=== PATIENT | female | born 1950 | race Caucasian/White ===

== ENCOUNTER 2019-08-11 13:33 | Inpatient (IN) | payer MEDICARE, OTHER ==
[~2019-08-11] VITALS: Ht 165.1 cm; Wt 60.8 kg
[~2019-08-11 13:33] MED LIST: AMLODIPINE BESYL5 MG ORAL; BENAZEPRIL HCL20 MG ORAL; BUPROPION HCL100 MG ORAL; CYCLOBENZAPRINE10 MG ORAL; FENTANYL1 EAC4 TDERMAL; GABAPENTIN300 MG ORAL; HYDROCODON-ACE1 EA13 ORAL; IBUPROFEN600 MG ORAL; LAMICTAL25 MG ORAL; METOPROLOL SUCC25 MG ORAL; RISPERDAL0.5 MG ORAL; RISPERDAL2 MG ORAL; ZOFRAN4 M3 ORAL
[2019-08-11] MEDS ORDERED: Morphine Sulfate 4mg/ml Inj (IV USE ONLY) IVP ONE (14:15)
[2019-08-11 14:54] LABS: BASOPHILS % (AUTO) 0.8 % (0.0-2.0); EOSINOPHILS % (AUTO) 7.5 % (0.0-3.0); HEMATOCRIT 34.1 % (37.0-47.0); HEMOGLOBIN 11.6 G/DL (12.0-16.0); LYMPHOCYTES % (AUTO) 18.5 % (20.0-45.0); MEAN CORPUSCULAR VOLUME 91 FL (80-99); NEUTROPHILS % (AUTO) 67.3 % (45.0-75.0); PLATELET COUNT 174 K/UL (150-450); RED BLOOD COUNT 3.74 M/UL (4.20-5.40); RED CELL DISTRIBUTION WIDTH 11.9 % (11.6-14.8); WHITE BLOOD COUNT 8.2 K/UL (4.8-10.8)
[2019-08-11 15:09] LABS: ANION GAP 8 mmol/L (5-15); BLOOD UREA NITROGEN 30 mg/dL (7-18); CARBON DIOXIDE 25 MMOL/L (21-32); CHLORIDE 109 MMOL/L (98-107); CREATININE 1.5 MG/DL (0.55-1.30); POTASSIUM 4.6 MMOL/L (3.5-5.1); SODIUM 142 MMOL/L (136-145)
[2019-08-11 15:11] LABS: ALANINE AMINOTRANSFERASE 22 U/L (12-78); ALBUMIN 3.3 G/DL (3.4-5.0); ALBUMIN/GLOBULIN RATIO 1.1 (1.0-2.7); ALKALINE PHOSPHATASE 86 U/L (46-116); ASPARTATE AMINO TRANSFERASE 11 U/L (15-37); BILIRUBIN,TOTAL 0.2 MG/DL (0.2-1.0)
[2019-08-11 15:22] VITALS: BP 107/67
--- NOTE | 2019-08-11 15:22 | NUR ---
ER Nurse Note: Pt stated she has been feeling weak espically on bilateral lower extremities and is unable to walk for around 2 months. Pt a&ox3, VSS, RA, no signs disstress. IV started by previous nurse on RT AC 20 gauge infusing NS. Morphine given for pain; no n/v, all safety measures met; will continue to montior.
[2019-08-11] MEDS ORDERED: Zolpidem 5mg tab ORAL PRN (15:30)
[2019-08-11] MEDS ORDERED: Miralax 17gm pkt ORAL PRN (15:30)
--- NOTE | 2019-08-11 17:02 | NUR ---
ER Nurse Note: Per ERMD orders, verbal orders for zofran IV 4mg ordered. Pt stated she was nauseous after morphine. Zofran ordered and given. Pt calm, stable, RA, no signs of distress. NS infusing on RT AC; patent. All safety measures met; will continue to montior.
[2019-08-11 17:13] VITALS: BP 125/75
--- NOTE | 2019-08-11 17:55 | Emergency Room Report ---
History of Present Illness General Chief Complaint: Generalized Weakness Source: Medical Record Present Illness HPI 68-year-old female presents ED for evaluation. Brought in by EMS from assisted living facility. Complaining of lower back pain x2 months. Radiating down the legs. States she feels weak and cannot walk. Denies any bowel or bladder incontinence. Denies fevers or chills. Pain is an 8 out of 10, dull. No other aggravating relieving factors. Denies any other associated symptoms Allergies: Coded Allergies: No Known Allergies (Unverified , 07/16/19) Patient History Past Medical History: HTN Past Surgical History: none Pertinent Family History: none Social History: Denies: smoking, alcohol use, drug use Now: No Immunizations: UTD Reviewed Nursing Documentation: PMH: Agreed; PSxH: Agreed Nursing Documentation-PMH Past Medical History: No History, Except For Hx Hypertension: Yes Review of Systems All Other Systems: negative except mentioned in HPI Physical Exam Vital Signs Date Time Temp Pulse Resp B/P (MAP) Pulse Ox O2 Delivery O2 Flow Rate FiO2 08/11/19 13:46 97.5 87 16 107/67 (80) 99 Room Air Sp02 EP Interpretation: reviewed, normal General Appearance: no apparent distress, alert, GCS 15, non-toxic Head: normocephalic, atraumatic Eyes: bilateral eye normal inspection, bilateral eye PERRL ENT: hearing grossly normal, normal pharynx, no angioedema, normal voice Neck: full range of motion, supple/symm/no masses Respiratory: chest non-tender, lungs clear, normal breath sounds, speaking full sentences Cardiovascular #1: regular rate, rhythm, no edema Cardiovascular #2: 2+ carotid (R), 2+ carotid (L), 2+ radial (R), 2+ radial (L) , 2+ dorsalis pedis (R), 2+ dorsalis pedis (L) Gastrointestinal: normal bowel sounds, non tender, soft, non-distended, no guarding, no rebound Rectal: deferred Genitourinary: normal inspection, no CVA tenderness Musculoskeletal: back normal, normal range of motion, gait/station normal, non- tender Neurologic: alert, oriented x3, sensory intact, responsive, speech normal, other - 3/5 lower extremities Psychiatric: judgement/insight normal, memory normal, mood/affect normal, no suicidal/homicidal ideation Reflexes: 3+ bicep (R), 3+ bicep (L), 3+ tricep (R), 3+ tricep (L), 3+ knee (R) , 3+ knee (L) Skin: no rash Lymphatic: no adenopathy Medical Decision Making Diagnostic Impression: Primary Impression: Intractable back pain Additional Impressions: Unsteady gait Renal insufficiency ER Course Hospital Course 68 yo F presents with back pain, weakness in legs Differential diagnoses include: sciatica, vertebral fx, kidney stone, Clinical course Patient placed on stretcher. campus monitor. After initial history and physical I ordered labs, IV fluids, pain meds Labs - no leukocytosis, Hb/Hct stable. cr 1.5 I reviewed EMR. Patient was seen in July for similar presentation. Had MRI done. I see no reason to repeat MRI at this time. Discussed option for admission at this time but patient declined. Agrees to admission today. Discussed with PMD who believes patient would benefit from admission Patient given pain medications but still continues to have pain and unable to walk Case discussed with Dr. Pimentel and he agreed to accept the patient to his service for further care and support I feel this is a highly complex case requiring extensive working including EKG/ Rhythm strip, Xray/CT/US, Blood/urine lab work, repeat exams while in ED, and administration of strong opiates/narcotics for pain control, admission to hospital or close patient follow up. Diagnosis -intractable back pain, unsteady gait, renal insuffiiciency Patient admitted to floor in serious condition Labs Test 08/11/19 14:30 White Blood Count 8.2 K/UL (4.8-10.8) Red Blood Count 3.74 M/UL (4.20-5.40) Hemoglobin 11.6 G/DL (12.0-16.0) Hematocrit 34.1 % (37.0-47.0) Mean Corpuscular Volume 91 FL (80-99) Mean Corpuscular Hemoglobin 31.1 PG (27.0-31.0) Mean Corpuscular Hemoglobin Concent 34.1 G/DL (32.0-36.0) Red Cell Distribution Width 11.9 % (11.6-14.8) Platelet Count 174 K/UL (150-450) Mean Platelet Volume 8.6 FL (6.5-10.1) Neutrophils (%) (Auto) 67.3 % (45.0-75.0) Lymphocytes (%) (Auto) 18.5 % (20.0-45.0) Monocytes (%) (Auto) 6.0 % (1.0-10.0) Eosinophils (%) (Auto) 7.5 % (0.0-3.0) Basophils (%) (Auto) 0.8 % (0.0-2.0) Sodium Level 142 MMOL/L (136-145) Potassium Level 4.6 MMOL/L (3.5-5.1) Chloride Level 109 MMOL/L (98-107) Carbon Dioxide Level 25 MMOL/L (21-32) Anion Gap 8 mmol/L (5-15) Blood Urea Nitrogen 30 mg/dL (7-18) Creatinine 1.5 MG/DL (0.55-1.30) Estimat Glomerular Filtration Rate 34.7 mL/min (>60) Glucose Level 78 MG/DL (74-106) Calcium Level 9.0 MG/DL (8.5-10.1) Total Bilirubin 0.2 MG/DL (0.2-1.0) Aspartate Amino Transf (AST/SGOT) 11 U/L (15-37) Alanine Aminotransferase (ALT/SGPT) 22 U/L (12-78) Alkaline Phosphatase 86 U/L (46-116) Total Protein 6.2 G/DL (6.4-8.2) Albumin 3.3 G/DL (3.4-5.0) Globulin 2.9 g/dL Albumin/Globulin Ratio 1.1 (1.0-2.7) Last Vital Signs Date Time Temp Pulse Resp B/P (MAP) Pulse Ox O2 Delivery O2 Flow Rate FiO2 08/11/19 17:13 98.2 80 16 125/75 96 Room Air Status: improved Disposition: ADMITTED INPATIENT Condition: Serious Referrals: Kaushik Pimentel MD (PCP) Gunnar Parham MD Aug 11, 2019 17:55
[2019-08-11] MEDS ORDERED: Cyclobenzaprine 10mg Tab ORAL SCH (18:00)
--- NOTE | 2019-08-11 18:50 | NUR ---
ER Nurse Note: Pt asleep, no signs of distress, RA. Pt calm. Skin intact; Bed in the lowest position. No falls, all safety measures met; will continue to monitor.
[2019-08-11 20:50] VITALS: BP 134/72
--- NOTE | 2019-08-11 20:50 | NUR ---
ER Nurse Note: Report given to PRIYA Mujica for continuity of care. Pt denies pain, shortness of breath. All belongings accounted for.
[2019-08-11 21:00] VITALS: BP 140/85
[2019-08-11] MEDS: Heparin 5000 units/ml inj SUBQ SCH (21:27)
[2019-08-11] MEDS: Cyclobenzaprine 10mg Tab ORAL SCH (21:28)
--- NOTE | 2019-08-11 21:30 | NUR ---
NURSE NOTES: Received patient from ER via gurney, able to make needs known, no s/s of a acute distress, no c/o pain at this time. IV access patent, flushed with NS, dressing dry and intact. VSS. Call light and belongings within reach, bed low and locked, patient given yellow gown and yellow socks.
[2019-08-12] VITALS (7 sets, daily range): BP systolic 107–138; BP diastolic 68–87
--- NOTE | 2019-08-12 08:13 | NUR ---
NURSE NOTES: Patient is awake and alert and oriented,respirations unlabored .patient sitting up in bed and eating breakfast.Call light within reach.
[2019-08-12 08:19] LABS: BASOPHILS % (AUTO) 0.6 % (0.0-2.0); EOSINOPHILS % (AUTO) 7.7 % (0.0-3.0); HEMATOCRIT 32.4 % (37.0-47.0); HEMOGLOBIN 11.4 G/DL (12.0-16.0); LYMPHOCYTES % (AUTO) 21.1 % (20.0-45.0); MEAN CORPUSCULAR VOLUME 90 FL (80-99); MONOCYTES % (AUTO) 6.1 % (1.0-10.0); NEUTROPHILS % (AUTO) 64.5 % (45.0-75.0); PLATELET COUNT 158 K/UL (150-450); RED CELL DISTRIBUTION WIDTH 11.8 % (11.6-14.8); WHITE BLOOD COUNT 7.9 K/UL (4.8-10.8)
[2019-08-12 09:01] LABS: ALANINE AMINOTRANSFERASE 74 U/L (12-78); ALBUMIN 3.3 G/DL (3.4-5.0); ALBUMIN/GLOBULIN RATIO 1.2 (1.0-2.7); ALKALINE PHOSPHATASE 128 U/L (46-116); ANION GAP 8 mmol/L (5-15); ASPARTATE AMINO TRANSFERASE 51 U/L (15-37); BILIRUBIN,TOTAL 0.3 MG/DL (0.2-1.0); BLOOD UREA NITROGEN 23 mg/dL (7-18); CALCIUM 9.1 MG/DL (8.5-10.1); CARBON DIOXIDE 25 MMOL/L (21-32); CHLORIDE 110 MMOL/L (98-107); CREATININE 1.1 MG/DL (0.55-1.30); POTASSIUM 4.3 MMOL/L (3.5-5.1); SODIUM 143 MMOL/L (136-145)
--- NOTE | 2019-08-12 09:17 | Consultation ---
History of Present Illness General Date patient seen: Aug 12, 2019 Time patient seen: 07:30 - am Chief Complaint: Back pain Referring physician: Margarito Reason for Consultation: Pain Management Present Illness HPI Patient is a known patient from previous hospital admissions. Had been in [facility] where she underwent lumbar fusion with Dr. Martinez. She has continued pain and the pain is shooting into her legs. Patient also reports that she had a fall and the pain has increased. We were consulted so patient has adequate pain control while here in the hospital. Allergies: Coded Allergies: No Known Allergies (Unverified , 07/16/19) Medication History Scheduled Amlodipine Besylate* (Amlodipine Besylate*), 5 MG ORAL DAILY, (Reported) Benazepril Hcl* (Benazepril Hcl*), 20 MG ORAL DAILY, (Reported) Bupropion Hcl* (Bupropion Hcl*), 150 MG ORAL DAILY, (Reported) Cyclobenzaprine Hcl* (Flexeril*), 5 MG ORAL TWICE A DAY, (Reported) Fentanyl 12MCG Patch* (Fentanyl 12MCG Patch*), 1 PATCH TDERMAL EVERY 72 HOURS, ( Reported) Gabapentin* (Gabapentin*), 300 MG ORAL THREE TIMES A DAY, (Reported) Hydrocodone Bit/Acetaminophen 10-325* (Hydrocodon-Acetaminophn 10-325*), 1 TAB ORAL Q6H, (Reported) Lamotrigine* (Lamictal*), 25 MG ORAL DAILY, (Reported) Metoprolol Succinate* (Metoprolol Succinate*), 25 MG ORAL DAILY, (Reported) Risperidone* (Risperdal*), 7 MG ORAL BEDTIME, (Reported) Risperidone* (Risperdal*), 2 MG ORAL BEFORE BREAKFAST, (Reported) Scheduled PRN Ibuprofen* (Motrin*), 600 MG ORAL Q6H PRN for For Pain, (Reported) Ondansetron* (Zofran*), 4 MG ORAL Q4HR PRN for Nausea & Vomiting, (Reported) Patient History Healthcare decision maker Resuscitation status Advanced Directive on File No Past Medical/Surgical History Past Medical/Surgical History: (1) Depression (2) Renal insufficiency (3) Dehydration (4) Psychosis (5) Intractable back pain (6) History of lumbosacral spine surgery Review of Systems Constitutional: Reports: weakness Eye: Reports: no symptoms ENT: Reports: no symptoms Respiratory: Reports: no symptoms Cardiovascular: Reports: no symptoms Gastrointestinal: Reports: no symptoms Genitourinary: Reports: no symptoms Musculoskeletal: Reports: back pain Skin: Reports: no symptoms Psychiatric: Reports: no symptoms Neurological: Reports: no symptoms Endocrine: Reports: no symptoms Hematologic/Lymphatic: Reports: no symptoms Physical Exam General Appearance: no apparent distress, alert Lines, tubes and drains: peripheral HEENT: normocephalic, PERRL, EOMI Neck: non-tender, normal alignment Respiratory/Chest: lungs clear, normal breath sounds Cardiovascular/Chest: normal rate, regular rhythm Abdomen: non tender, soft Extremities: non-tender, normal inspection Neurologic: abnormal gait, alert, oriented x 3 Last 24 Hour Vital Signs Date Time Temp Pulse Resp B/P (MAP) Pulse Ox O2 Delivery O2 Flow Rate FiO2 08/12/19 04:00 97.5 76 16 127/75 (92) 94 08/12/19 00:00 98.2 83 16 138/87 (104) 93 08/11/19 23:01 Room Air 08/11/19 21:00 98.4 82 19 140/85 (103) 94 08/11/19 20:50 98.4 84 16 134/72 97 Room Air 08/11/19 20:50 98.4 82 16 134/72 96 Room Air 08/11/19 17:13 98.2 80 16 125/75 96 Room Air 08/11/19 15:39 97.6 08/11/19 15:22 97.5 87 16 107/67 99 Room Air 08/11/19 15:22 87 16 Room Air 08/11/19 13:46 97.5 87 16 107/67 (80) 99 Room Air Intake and Output 08/11/19 08/12/19 19:00 07:00 Intake Total 1000 ml Balance 1000 ml Intake IV Total 1000 ml # Voids 3 Laboratory Tests Test 08/11/19 14:30 08/12/19 07:00 White Blood Count 8.2 K/UL (4.8-10.8) 7.9 K/UL (4.8-10.8) Red Blood Count 3.74 M/UL (4.20-5.40) L 3.60 M/UL (4.20-5.40) L Hemoglobin 11.6 G/DL (12.0-16.0) L 11.4 G/DL (12.0-16.0) L Hematocrit 34.1 % (37.0-47.0) L 32.4 % (37.0-47.0) L Mean Corpuscular Volume 91 FL (80-99) 90 FL (80-99) Mean Corpuscular Hemoglobin 31.1 PG (27.0-31.0) H 31.6 PG (27.0-31.0) H Mean Corpuscular Hemoglobin Concent 34.1 G/DL (32.0-36.0) 35.1 G/DL (32.0-36.0) Red Cell Distribution Width 11.9 % (11.6-14.8) 11.8 % (11.6-14.8) Platelet Count 174 K/UL (150-450) 158 K/UL (150-450) Mean Platelet Volume 8.6 FL (6.5-10.1) 7.7 FL (6.5-10.1) Neutrophils (%) (Auto) 67.3 % (45.0-75.0) 64.5 % (45.0-75.0) Lymphocytes (%) (Auto) 18.5 % (20.0-45.0) L 21.1 % (20.0-45.0) Monocytes (%) (Auto) 6.0 % (1.0-10.0) 6.1 % (1.0-10.0) Eosinophils (%) (Auto) 7.5 % (0.0-3.0) H 7.7 % (0.0-3.0) H Basophils (%) (Auto) 0.8 % (0.0-2.0) 0.6 % (0.0-2.0) Sodium Level 142 MMOL/L (136-145) 143 MMOL/L (136-145) Potassium Level 4.6 MMOL/L (3.5-5.1) 4.3 MMOL/L (3.5-5.1) Chloride Level 109 MMOL/L (98-107) H 110 MMOL/L (98-107) H Carbon Dioxide Level 25 MMOL/L (21-32) 25 MMOL/L (21-32) Anion Gap 8 mmol/L (5-15) 8 mmol/L (5-15) Blood Urea Nitrogen 30 mg/dL (7-18) H 23 mg/dL (7-18) H Creatinine 1.5 MG/DL (0.55-1.30) H 1.1 MG/DL (0.55-1.30) Estimat Glomerular Filtration Rate 34.7 mL/min (>60) 49.6 mL/min (>60) Glucose Level 78 MG/DL (74-106) 84 MG/DL (74-106) Calcium Level 9.0 MG/DL (8.5-10.1) 9.1 MG/DL (8.5-10.1) Total Bilirubin 0.2 MG/DL (0.2-1.0) 0.3 MG/DL (0.2-1.0) Aspartate Amino Transf (AST/SGOT) 11 U/L (15-37) L 51 U/L (15-37) H Alanine Aminotransferase (ALT/SGPT) 22 U/L (12-78) 74 U/L (12-78) Alkaline Phosphatase 86 U/L (46-116) 128 U/L (46-116) H Total Protein 6.2 G/DL (6.4-8.2) L 6.1 G/DL (6.4-8.2) L Albumin 3.3 G/DL (3.4-5.0) L 3.3 G/DL (3.4-5.0) L Globulin 2.9 g/dL 2.8 g/dL Albumin/Globulin Ratio 1.1 (1.0-2.7) 1.2 (1.0-2.7) Thyroid Stimulating Hormone (TSH) 2.644 uiU/mL (0.358-3.740) Height (Feet): 5 Height (Inches): 5.00 Weight (Pounds): 134 Medications Current Medications Medications (Trade) Dose Ordered Sig/Holli Route PRN Reason Start Time Stop Time Status Last Admin Dose Admin Acetaminophen (Tylenol) 650 mg Q4H PRN ORAL fever 08/11/19 15:30 09/10/19 15:29 Amlodipine Besylate (Norvasc) 5 mg DAILY ORAL 08/12/19 09:00 09/11/19 08:59 Bupropion HCl (Wellbutrin) 150 mg DAILY ORAL 08/12/19 09:00 09/11/19 08:59 Cyclobenzaprine HCl (Flexeril) 5 mg TWICE A DAY ORAL 08/11/19 21:00 09/10/19 20:59 08/11/19 21:28 Dextrose (Dextrose 50%) 25 ml Q30M PRN IV Hypoglycemia 08/11/19 15:30 09/10/19 15:29 Dextrose (Dextrose 50%) 50 ml Q30M PRN IV Hypoglycemia 08/11/19 15:30 09/10/19 15:29 Gabapentin (Neurontin) 300 mg THREE TIMES A DAY ORAL 08/11/19 21:00 09/10/19 20:59 08/11/19 21:28 Heparin Sodium (Porcine) (Heparin 5000 units/ml) 5,000 units EVERY 12 HOURS SUBQ 08/11/19 21:00 09/10/19 20:59 08/11/19 21:27 Lamotrigine (LaMICtal) 25 mg DAILY ORAL 08/12/19 09:00 09/11/19 08:59 Ondansetron HCl (Zofran) 4 mg Q6H PRN IVP Nausea & Vomiting 08/11/19 15:30 09/10/19 15:29 Polyethylene Glycol (Miralax) 17 gm HSPRN PRN ORAL Constipation 08/11/19 15:30 09/10/19 15:29 Risperidone (RisperDAL) 2 mg BEFORE BREAKFAST ORAL 08/12/19 06:30 09/11/19 06:29 08/12/19 06:48 Zolpidem Tartrate (Ambien) 5 mg HSPRN PRN ORAL Insomnia 08/11/19 15:30 08/18/19 15:29 Assessment/Plan Assessment/Plan: (1) Lumbar DDD (2) Lumbar Spondylosis (3) Lumbar Radiculopathy (4) H/o Lumbar fusion (5) Lumbar sprain Patient will be started on [place] 10/325mg PO 1 tab Q4h PRN and we will order an Xray of L spine. D/w Dr. Quach and he concurred. Lonnie Strong Aug 12, 2019 09:17
[2019-08-12] MEDS: Cyclobenzaprine 10mg Tab ORAL SCH ×2 (09:24→18:47)
[2019-08-12] MEDS: Heparin 5000 units/ml inj SUBQ SCH ×2 (09:25→21:22)
[2019-08-12] MEDS ORDERED: HYDROcodone/Acetamin 10/325 tab ORAL PRN ×2 (09:30)
--- NOTE | 2019-08-12 10:44 | NUR ---
P.T Note: P.T evaluation completed and tx initiated. Please refer to P.T evaluation for current functional status. Pt received in supine position, alert , oriented to self, place and time ( knows current year, month but not the current date ). Pt reports c/o pain 5/10 in the lower back down to R thigh and lower leg. Pt also c/o weakness resulting to difficulty with mobility and inability to ambulate. Pt currently require MIN A X 1 and extended time to complete bed mobility and transfer mobility tasks. Pt was able to ambulate 8 ft using the FWW and requiring MOD A to maintain ambulatory balance. Overall Fair endurance. Skilled P.T service is warranted to increase strength, balance and endurance to increase mobility independence and safety. Recommend SNF for further rehab intervention at [facility]. Pt is cleared for OOB to chair activities with nursing assistance. Thank you for this referral.
--- NOTE | 2019-08-12 13:27 | History and Physical ---
History of Present Illness General Date patient seen: Aug 12, 2019 Reason for Hospitalization: Generalized Weakness Present Illness HPI 68-year-old female with hx of depression, psychosis, lumbar spine surgery in the past presented to ED for evaluation of lower back pain x2 months. Radiating down the legs. States she feels weak and cannot walk. Denies any bowel or bladder incontinence. Denies fevers or chills. Pain is an 8 out of 10 , dull. Pt was recently in ER with the same symptoms but didn't want to get admitted. Allergies: Coded Allergies: No Known Allergies (Unverified , 07/16/19) Medication History Scheduled Amlodipine Besylate* (Amlodipine Besylate*), 5 MG ORAL DAILY, (Reported) Benazepril Hcl* (Benazepril Hcl*), 20 MG ORAL DAILY, (Reported) Bupropion Hcl* (Bupropion Hcl*), 150 MG ORAL DAILY, (Reported) Cyclobenzaprine Hcl* (Flexeril*), 5 MG ORAL TWICE A DAY, (Reported) Fentanyl 12MCG Patch* (Fentanyl 12MCG Patch*), 1 PATCH TDERMAL EVERY 72 HOURS, ( Reported) Gabapentin* (Gabapentin*), 300 MG ORAL THREE TIMES A DAY, (Reported) Hydrocodone Bit/Acetaminophen 10-325* (Hydrocodon-Acetaminophn 10-325*), 1 TAB ORAL Q6H, (Reported) Lamotrigine* (Lamictal*), 25 MG ORAL DAILY, (Reported) Metoprolol Succinate* (Metoprolol Succinate*), 25 MG ORAL DAILY, (Reported) Risperidone* (Risperdal*), 7 MG ORAL BEDTIME, (Reported) Risperidone* (Risperdal*), 2 MG ORAL BEFORE BREAKFAST, (Reported) Scheduled PRN Ibuprofen* (Motrin*), 600 MG ORAL Q6H PRN for For Pain, (Reported) Ondansetron* (Zofran*), 4 MG ORAL Q4HR PRN for Nausea & Vomiting, (Reported) Patient History Healthcare decision maker Resuscitation status Advanced Directive on File No Past Medical/Surgical History Past Medical/Surgical History: (1) History of lumbosacral spine surgery (2) Psychosis (3) Depression Review of Systems All Other Systems: negative except mentioned in HPI Physical Exam General Appearance: WD/WN Lines, tubes and drains: peripheral HEENT: normocephalic, atraumatic Neck: non-tender, normal alignment Respiratory/Chest: chest wall non-tender, lungs clear Abdomen: normal bowel sounds, non tender Genitourinary/Rectal: normal genital exam, normal rectal exam Extremities: normal range of motion Skin Exam: normal pigmentation Last 24 Hour Vital Signs Date Time Temp Pulse Resp B/P (MAP) Pulse Ox O2 Delivery O2 Flow Rate FiO2 08/12/19 09:00 77 107/68 08/12/19 08:20 98.6 77 17 107/68 (81) 95 08/12/19 04:00 97.5 76 16 127/75 (92) 94 08/12/19 00:00 98.2 83 16 138/87 (104) 93 08/11/19 23:01 Room Air 08/11/19 21:00 98.4 82 19 140/85 (103) 94 08/11/19 20:50 98.4 84 16 134/72 97 Room Air 08/11/19 20:50 98.4 82 16 134/72 96 Room Air 08/11/19 17:13 98.2 80 16 125/75 96 Room Air 08/11/19 15:39 97.6 08/11/19 15:22 97.5 87 16 107/67 99 Room Air 08/11/19 15:22 87 16 Room Air 08/11/19 13:46 97.5 87 16 107/67 (80) 99 Room Air Intake and Output 08/11/19 08/12/19 19:00 07:00 Intake Total 1000 ml Balance 1000 ml Intake IV Total 1000 ml # Voids 3 Laboratory Tests Test 08/11/19 14:30 08/12/19 07:00 White Blood Count 8.2 K/UL (4.8-10.8) 7.9 K/UL (4.8-10.8) Red Blood Count 3.74 M/UL (4.20-5.40) L 3.60 M/UL (4.20-5.40) L Hemoglobin 11.6 G/DL (12.0-16.0) L 11.4 G/DL (12.0-16.0) L Hematocrit 34.1 % (37.0-47.0) L 32.4 % (37.0-47.0) L Mean Corpuscular Volume 91 FL (80-99) 90 FL (80-99) Mean Corpuscular Hemoglobin 31.1 PG (27.0-31.0) H 31.6 PG (27.0-31.0) H Mean Corpuscular Hemoglobin Concent 34.1 G/DL (32.0-36.0) 35.1 G/DL (32.0-36.0) Red Cell Distribution Width 11.9 % (11.6-14.8) 11.8 % (11.6-14.8) Platelet Count 174 K/UL (150-450) 158 K/UL (150-450) Mean Platelet Volume 8.6 FL (6.5-10.1) 7.7 FL (6.5-10.1) Neutrophils (%) (Auto) 67.3 % (45.0-75.0) 64.5 % (45.0-75.0) Lymphocytes (%) (Auto) 18.5 % (20.0-45.0) L 21.1 % (20.0-45.0) Monocytes (%) (Auto) 6.0 % (1.0-10.0) 6.1 % (1.0-10.0) Eosinophils (%) (Auto) 7.5 % (0.0-3.0) H 7.7 % (0.0-3.0) H Basophils (%) (Auto) 0.8 % (0.0-2.0) 0.6 % (0.0-2.0) Sodium Level 142 MMOL/L (136-145) 143 MMOL/L (136-145) Potassium Level 4.6 MMOL/L (3.5-5.1) 4.3 MMOL/L (3.5-5.1) Chloride Level 109 MMOL/L (98-107) H 110 MMOL/L (98-107) H Carbon Dioxide Level 25 MMOL/L (21-32) 25 MMOL/L (21-32) Anion Gap 8 mmol/L (5-15) 8 mmol/L (5-15) Blood Urea Nitrogen 30 mg/dL (7-18) H 23 mg/dL (7-18) H Creatinine 1.5 MG/DL (0.55-1.30) H 1.1 MG/DL (0.55-1.30) Estimat Glomerular Filtration Rate 34.7 mL/min (>60) 49.6 mL/min (>60) Glucose Level 78 MG/DL (74-106) 84 MG/DL (74-106) Calcium Level 9.0 MG/DL (8.5-10.1) 9.1 MG/DL (8.5-10.1) Total Bilirubin 0.2 MG/DL (0.2-1.0) 0.3 MG/DL (0.2-1.0) Aspartate Amino Transf (AST/SGOT) 11 U/L (15-37) L 51 U/L (15-37) H Alanine Aminotransferase (ALT/SGPT) 22 U/L (12-78) 74 U/L (12-78) Alkaline Phosphatase 86 U/L (46-116) 128 U/L (46-116) H Total Protein 6.2 G/DL (6.4-8.2) L 6.1 G/DL (6.4-8.2) L Albumin 3.3 G/DL (3.4-5.0) L 3.3 G/DL (3.4-5.0) L Globulin 2.9 g/dL 2.8 g/dL Albumin/Globulin Ratio 1.1 (1.0-2.7) 1.2 (1.0-2.7) Thyroid Stimulating Hormone (TSH) 2.644 uiU/mL (0.358-3.740) Height (Feet): 5 Height (Inches): 5.00 Weight (Pounds): 134 Medications Current Medications Medications (Trade) Dose Ordered Sig/Holli Route PRN Reason Start Time Stop Time Status Last Admin Dose Admin Acetaminophen (Tylenol) 650 mg Q4H PRN ORAL fever 08/11/19 15:30 09/10/19 15:29 Acetaminophen/ Hydrocodone Bitart (Yeaddiss 10/325) 1 tab Q4H PRN ORAL Severe Pain (Pain Scale 7-10) 08/12/19 09:30 2 09:29 08/12/19 11:22 Amlodipine Besylate (Norvasc) 5 mg DAILY ORAL 08/12/19 09:00 09/11/19 08:59 Bupropion HCl (Wellbutrin) 150 mg DAILY ORAL 08/13/19 09:00 09/11/19 08:59 Cyclobenzaprine HCl (Flexeril) 5 mg TWICE A DAY ORAL 08/11/19 21:00 09/10/19 20:59 08/12/19 09:24 Dextrose (Dextrose 50%) 25 ml Q30M PRN IV Hypoglycemia 08/11/19 15:30 09/10/19 15:29 Dextrose (Dextrose 50%) 50 ml Q30M PRN IV Hypoglycemia 08/11/19 15:30 09/10/19 15:29 Gabapentin (Neurontin) 300 mg THREE TIMES A DAY ORAL 08/11/19 21:00 09/10/19 20:59 08/12/19 09:23 Heparin Sodium (Porcine) (Heparin 5000 units/ml) 5,000 units EVERY 12 HOURS SUBQ 08/11/19 21:00 09/10/19 20:59 08/12/19 09:25 Lamotrigine (LaMICtal) 25 mg DAILY ORAL 08/12/19 09:00 09/11/19 08:59 08/12/19 09:23 Ondansetron HCl (Zofran) 4 mg Q6H PRN IVP Nausea & Vomiting 08/11/19 15:30 09/10/19 15:29 Polyethylene Glycol (Miralax) 17 gm HSPRN PRN ORAL Constipation 08/11/19 15:30 09/10/19 15:29 Risperidone (RisperDAL) 2 mg BEFORE BREAKFAST ORAL 08/12/19 06:30 09/11/19 06:29 08/12/19 06:48 Zolpidem Tartrate (Ambien) 5 mg HSPRN PRN ORAL Insomnia 08/11/19 15:30 08/18/19 15:29 Assessment/Plan Problem List: (1) Intractable back pain ICD Codes: M54.9 - Dorsalgia, unspecified SNOMED: 919584018 (2) Dehydration ICD Codes: E86.0 - Dehydration SNOMED: 64424068 (3) Unsteady gait ICD Codes: R26.81 - Unsteadiness on feet SNOMED: 648021570, 54610402 (4) Depression ICD Codes: F32.9 - Major depressive disorder, single episode, unspecified SNOMED: 32312871 (5) Psychosis ICD Codes: F29 - Unspecified psychosis not due to a substance or known physiological condition SNOMED: 99231163 (6) History of lumbosacral spine surgery ICD Codes: Z98.890 - Other specified postprocedural states SNOMED: 665875366 Assessment/Plan: Neurology to see psych evaluation pain management iv fluids check electrolytes pt/ot Kaushik Pimentel MD Aug 12, 2019 13:27
--- NOTE | 2019-08-12 15:55 | NUR ---
CASE MANAGEMENT: INITIAL REVIEW 68YR OLD FEMALE FROM [facility] CC: GENERALIZED WEAKNESS SI: UNSTEADY GAIT . INTRACTABLE BACK PAIN . RENAL INSUFFICIENCY 97.6 87 16 107/67 99% ON RA H/H 11.6/34.1 CL-109 BUN 30 CREAT 1.5 AST 11 IS:IV NS BOLUS X1 IV MORPHINE SULFATE X1 \: 4E MED SURG UNIT PLAN: PT EVAL CT L SPINE CONSULT FOR PAIN MANAGEMENT CASE MANAGEMENT: REVIEW 08/12/19 SI: UNSTEADY GAIT . INTRACTABLE BACK PAIN . RENAL INSUFFICIENCY 98.5 90 17 123/73 98% ON RA H/H 11.4/32.4 CL-110 BUN 23 AST 51 ALK-PHOS 128 IS:HEPARIN SQ BID NORVASC PO QD NEURONTIN PO TID NORCO PO Q4HR/PRN \: 4E MED SURG UNIT PLAN: PT EVAL CT L SPINE CONSULT FOR PAIN MANAGEMENT
--- NOTE | 2019-08-12 17:03 | Diagnostic Imaging Report ---
Indications: Low back pain x2 months, pain radiating down both legs Technique: Spiral acquisitions obtained through the lumbar spine. Multiplanar reconstructions were generated. No IV contrast utilized. Total dose length product 553 mGycm. CTDIvol(s) 13 mGy. Dose reduction achieved using automated exposure control Comparison: No comparison CT scans. Reference made to lumbar MRI dated 07/16/2019 Findings: Spinal fusion hardware is seen bridging L1, L2, L3, L4, and L5. There are disc spacers bridging L2-3, L3-4, and L4-5. There is complete subluxation of L5 on S1, and L5 has settled anterior to S1 with the posterior aspect of the hardware essentially resting on top of S1. This is also demonstrated on the prior MRI, better visualized on this exam. Streak artifact from the hardware does obscure much of the image, however. There is evidence of some bone graft material along the medial aspects of the posterior elements. The remainder of the bony alignment is normal. The bones are osteoporotic. The streak artifact makes it difficult to assess the degree of ankylosis of the discs. There is evidence of some ankylosis at L4-5. Is unclear as to whether there is any ankylosis at L2-3 and L3-4. Patient is status post partial laminectomy at L3, complete laminectomy at L4 and L5. There also appears to be some resection of the pedicles at L3, L4, and possibly L5, as there appears to be an unusual widening of the neural foramina at these levels. The pedicle screws appear to be entirely intraosseous at all levels. At T10-11, T11-12, T12-L1, L1-L2, no significant disc bulge or protrusion, spinal stenosis, or neural foraminal stenosis. At the remaining disc levels, the presence of disc pathology is not possible to assess due to streak artifact. However, there is decompression of the lamina and there also appears to be widening of the neural foramina, presumably due to prior surgery. The bladder appears to be massively distended. There are calcified uterine fibroids noted. Impression: Grade 4+ spondylolisthesis of L5 on S1, with complete subluxation and the L5 vertebral body resting entirely anterior to the S1 vertebral body, as described. Postsurgical changes, as described No definite neural impingement. Although the alignment abnormality could cause impingement of the spinal canal at the L5-S1 region, prior MRI demonstrates patency of the spinal canal at this level. Massively distended bladder Calcium uterine fibroids. The CT scanner at [facility] is accredited by the [employer] and the scans are performed using protocols designed to limit radiation exposure to as low as reasonably achievable to attain images of sufficient resolution adequate for diagnostic evaluation.
--- NOTE | 2019-08-12 18:00 | NUR ---
NURSE NOTES: Patient resting at this time ,nurse aide has been aware of fall precaution status Assist patient with ADls.Call light within reach.
--- NOTE | 2019-08-12 19:00 | NUR ---
HAND-OFF: Report given to Sami POWERS,update on patient fall risk .
--- NOTE | 2019-08-12 20:00 | NUR ---
NURSE NOTES: Patient received in bed aox4, forgetful but easily reoriented. Bed bath given as patient requested. Yellow socks and yellow gown on. Instructed to call for assistance. Patient verbalized she won't be getting up because of pain. Call light provided. Belongings within reach. Will continue to monitor.
--- NOTE | 2019-08-12 21:06 | Consultation ---
DATE OF CONSULTATION: 08/12/2019 CONSULTING PHYSICIAN: Magdiel Morel M.D. REFERRING PHYSICIAN: Kaushik Pimentel M.D. HISTORY OF PRESENT ILLNESS: This is a 68-year-old female with a history of depression, psychotic disorder as well as renal insufficiency, dehydration who has been admitted to the hospital for medical stabilization. The patient is presenting with depressed mood, anhedonia, worthlessness, and hopelessness. She has been eating and sleeping adequately. She has difficulty sleeping at times. No suicidal or homicidal ideation. The patient was able to answer the questions appropriately. She has psychomotor retardation. The pt is suffering from auditory hallucinations. PAST PSYCHIATRIC HISTORY: Depression and anxiety. PAST MEDICAL HISTORY: As above. ALLERGIES: No known drug allergies. SUBSTANCE ABUSE HISTORY: No known history of illicit drug use or alcohol. MENTAL STATUS EXAMINATION: The patient is alert, oriented times self, place, situation. Mood is depressed. Affect is constricted, congruent with mood. Thought process is linear and goal-oriented. Thought content, no suicidal or homicidal ideation. Cognition is impaired, specifically is memory. Insight and judgment is fair. ASSESSMENT: AXIS I: 1. Major depressive disorder. 2. Psychotic disorder. PLAN: 1. We will continue the patient on Wellbutrin 150 mg in the morning. 2. Risperidone 4 mg and will be changing into HS. 3. Provide the patient with reality orientation and supportive therapy. Magdiel Morel M.D. DR: DOMINIK JOB#: [id number] CC: REBA
[2019-08-13 04:00] VITALS: BP 129/78
--- NOTE | 2019-08-13 07:26 | NUR ---
HAND-OFF: Report given to Hilary POWERS.
--- NOTE | 2019-08-13 07:33 | NUR ---
NURSE NOTES: patient awake and alert,respirations unlabored.patient incontinent of urine,skin care given afterward,position patient for breakfast.patient sitting up in bed.Call light within reach.
[2019-08-13 08:00] VITALS: BP 131/86
[2019-08-13] MEDS ORDERED: BuPROPion 75mg Tab ORAL SCH (09:00)
--- NOTE | 2019-08-13 09:11 | General Progress Note ---
Assessment/Plan Assessment/Plan: (1) Lumbar DDD (2) Lumbar Spondylosis (3) Lumbar Radiculopathy (4) H/o Lumbar fusion (5) Lumbar sprain Patient will be continued on Alden Recommend Neurosurgeon consult as per electrostatic paint operator D/w Dr. Quach and he concurred. Subjective Date patient seen: Aug 13, 2019 Time patient seen: 07:15 - am Allergies: Coded Allergies: No Known Allergies (Unverified , 07/16/19) Subjective Constitutional: Reports: weakness Eye: Reports: no symptoms ENT: Reports: no symptoms Respiratory: Reports: no symptoms Cardiovascular: Reports: no symptoms Gastrointestinal: Reports: no symptoms Genitourinary: Reports: no symptoms Musculoskeletal: Reports: back pain Skin: Reports: no symptoms Psychiatric: Reports: no symptoms Neurological: Reports: no symptoms Endocrine: Reports: no symptoms Hematologic/Lymphatic: Reports: no symptoms SUBJECTIVE: Patient is bed and reports that the pain is a 5/10 on the Alden as needed. CT scan was done instead of Xray. Objective Last 24 Hour Vital Signs Date Time Temp Pulse Resp B/P (MAP) Pulse Ox O2 Delivery O2 Flow Rate FiO2 08/13/19 04:00 98.1 89 17 129/78 (95) 98 08/12/19 23:33 97.8 93 17 126/80 (95) 98 08/12/19 21:00 Room Air 08/12/19 20:00 98.4 93 17 130/85 (100) 96 08/12/19 16:00 98.4 83 18 114/83 (93) 99 08/12/19 12:00 98.5 90 17 123/73 (90) 98 Intake and Output 08/12/19 08/13/19 19:00 07:00 Intake Total 480 ml 200 ml Balance 480 ml 200 ml Intake Oral 480 ml 200 ml # Voids 2 Height (Feet): 5 Height (Inches): 5.00 Weight (Pounds): 134 Objective General Appearance: no apparent distress, alert Lines, tubes and drains: peripheral HEENT: normocephalic, PERRL, EOMI Neck: non-tender, normal alignment Respiratory/Chest: lungs clear, normal breath sounds Cardiovascular/Chest: normal rate, regular rhythm Abdomen: non tender, soft Extremities: non-tender, normal inspection Neurologic: abnormal gait, alert, oriented x 3 CT Scan of L spine: Impression: Grade 4+ spondylolisthesis of L5 on S1, with complete subluxation and the L5 vertebral body resting entirely anterior to the S1 vertebral body, as described. Postsurgical changes, as described No definite neural impingement. Although the alignment abnormality could cause impingement of the spinal canal at the L5-S1 region, prior MRI demonstrates patency of the spinal canal at this level. Lonnie Strong Aug 13, 2019 09:11
[2019-08-13] MEDS: Cyclobenzaprine 10mg Tab ORAL SCH ×2 (10:05→19:20)
[2019-08-13] MEDS: Heparin 5000 units/ml inj SUBQ SCH ×2 (10:07→20:33)
[2019-08-13 12:00] VITALS: BP 130/85
[2019-08-13] MEDS ORDERED: BUPROPION HCL75 MG ORAL (14:28)
[2019-08-13] MEDS ORDERED: NORCO 10-325 T1 EACH ORAL (14:28)
[2019-08-13] MEDS ORDERED: RISPERDAL1 MG ORAL (14:28)
--- NOTE | 2019-08-13 14:37 | Pulmonology Progress Note ---
Assessment/Plan Problems: (1) Intractable back pain (2) Dehydration (3) Unsteady gait (4) Depression (5) Psychosis (6) History of lumbosacral spine surgery Assessment/Plan CT reviewed pain management recommending neurosurgery evaluation. But Pt doens't want any surgery. I will discharge her and arrange for out patient appointment with her own [place]surgeon [place] [facility] [place] other surgeon will touch her anyway. symptomatic treatment Subjective ROS Limited/Unobtainable: No Interval Events: pain is better controlled. Doesnt want to have any back surgery. Allergies: Coded Allergies: No Known Allergies (Unverified , 07/16/19) Objective Last 24 Hour Vital Signs Date Time Temp Pulse Resp B/P (MAP) Pulse Ox O2 Delivery O2 Flow Rate FiO2 08/13/19 12:00 98.5 99 18 130/85 (100) 95 08/13/19 09:00 121 102/67 08/13/19 09:00 Room Air 08/13/19 08:00 98.0 121 21 131/86 (101) 97 08/13/19 04:00 98.1 89 17 129/78 (95) 98 08/12/19 23:33 97.8 93 17 126/80 (95) 98 08/12/19 21:00 Room Air 08/12/19 20:00 98.4 93 17 130/85 (100) 96 08/12/19 16:00 98.4 83 18 114/83 (93) 99 Intake and Output 08/12/19 08/13/19 19:00 07:00 Intake Total 480 ml 200 ml Balance 480 ml 200 ml Intake Oral 480 ml 200 ml # Voids 2 General Appearance: WD/WN HEENT: normocephalic, atraumatic Respiratory/Chest: chest wall non-tender, lungs clear Breasts: no masses Cardiovascular: normal peripheral pulses, normal rate Abdomen: normal bowel sounds, no organomegaly Genitourinary: normal external genitalia Skin: no rash Current Medications Medications (Trade) Dose Ordered Sig/Holli Route PRN Reason Start Time Stop Time Status Last Admin Dose Admin Acetaminophen (Tylenol) 650 mg Q4H PRN ORAL fever 08/11/19 15:30 09/10/19 15:29 Acetaminophen/ Hydrocodone Bitart ([place] 10/325) 1 tab Q4H PRN ORAL Severe Pain (Pain Scale 7-10) 08/12/19 09:30 08/19/19 09:29 08/12/19 11:22 Amlodipine Besylate (Norvasc) 5 mg DAILY ORAL 08/12/19 09:00 09/11/19 08:59 08/13/19 09:00 Bupropion HCl (Wellbutrin) 150 mg DAILY ORAL 08/13/19 09:00 09/11/19 08:59 08/13/19 10:09 Cyclobenzaprine HCl (Flexeril) 5 mg TWICE A DAY ORAL 08/11/19 21:00 09/10/19 20:59 08/13/19 10:05 Dextrose (Dextrose 50%) 25 ml Q30M PRN IV Hypoglycemia 08/11/19 15:30 09/10/19 15:29 Dextrose (Dextrose 50%) 50 ml Q30M PRN IV Hypoglycemia 08/11/19 15:30 09/10/19 15:29 Gabapentin (Neurontin) 300 mg THREE TIMES A DAY ORAL 08/11/19 21:00 09/10/19 20:59 08/13/19 14:09 Heparin Sodium (Porcine) (Heparin 5000 units/ml) 5,000 units EVERY 12 HOURS SUBQ 08/11/19 21:00 09/10/19 20:59 08/13/19 10:07 Lamotrigine (LaMICtal) 25 mg DAILY ORAL 08/12/19 09:00 09/11/19 08:59 08/13/19 10:09 Ondansetron HCl (Zofran) 4 mg Q6H PRN IVP Nausea & Vomiting 08/11/19 15:30 09/10/19 15:29 Polyethylene Glycol (Miralax) 17 gm HSPRN PRN ORAL Constipation 08/11/19 15:30 09/10/19 15:29 Risperidone (RisperDAL) 4 mg BEDTIME ORAL 08/13/19 21:00 09/12/19 20:59 Zolpidem Tartrate (Ambien) 5 mg HSPRN PRN ORAL Insomnia 08/11/19 15:30 08/18/19 15:29 Kaushik Pimentel MD Aug 13, 2019 14:37
[2019-08-13 16:00] VITALS: BP 129/76
--- NOTE | 2019-08-13 17:23 | NUR ---
*-*DISCHARGE PLANNING*-* PATIENT HAS BEEN REFERRED TO: [facility] P: [phone] F: [phone] *-*CLINICALS FAXED*-* Addendum: 08/14/19 at 0821 by ERICKSON HUANG LVN f/u call made to [facility] CM will call back at 9am
--- NOTE | 2019-08-13 19:01 | NUR ---
CHARGE NURSE NOTE: BP 169/111. Ambulance refused to transfer pt to assistive living. notified.
--- NOTE | 2019-08-13 19:43 | NUR ---
HAND-OFF: Report given to Lety POWERS.
--- NOTE | 2019-08-13 19:47 | NUR ---
NURSE NOTES: Received patient in bed, awake, alert/oriented x2, gets easily confused, patient had elevated blood pressure and ambulance was unable to transport patient back to assisted living, patient will be monitored for blood pressure. IV site is clean dry and intact, bed is lowered, locked, alarm is on, will continue to monitor for comfort and safety.
[2019-08-13 20:32] VITALS: BP 164/103
--- NOTE | 2019-08-13 22:15 | NUR ---
[facility] ambulance transported patient at 2200 to [facility], b/p 160/110, RN called facility, approved to transport by green end department supervisor, patient is asymptomatic and stable at time of discharge, belongings are with the patient, items are accounted for.
--- NOTE | 2019-08-14 04:45 | Progress Note ---
DATE: 08/13/2019 SUBJECTIVE: The patient is less anxious today. Her auditory hallucination was much improved. She is more forgetful. The patient is compliant with medication. No behavior issues noted. MENTAL STATUS EXAMINATION: Alert and oriented times self and place, did not know the date. Mood is anxious. Affect is constricted, congruent with mood. Thought process is concrete. Thought content, auditory hallucination. No SI or HI. Cognition is intact. Insight and judgment are fair. ASSESSMENT: Stable. PLAN: 1. We will continue current medications. 2. Provide the patient with reality orientation and supportive therapy. Magdiel Morel M.D. DR: Caterina JOB#: [id number] CC: REBA
--- NOTE | 2019-08-14 09:03 | NUR ---
*-*DISCHARGE PLANNING*-* PATIENT HAS BEEN ACCEPTED TO: [facility] P: [phone] F: [phone] PRIYA SHELTON INFORMED OF PATIENTS DISCHARGE
--- NOTE | 2019-08-17 10:36 | Discharge Summary ---
Discharge Summary Discharge Summary _ DATE OF ADMISSION: 08/11/2019 DATE OF DISCHARGE: 08/13/2019 DISCHARGED BY: Dr. Pimentel REASON FOR ADMISSION: 68 years old female with past medical history of psychosis, depression, lumbar spine surgery in the past, presented to emergency department for evaluation of lower back pain , ongoing for 2 months. Patient reported that pain radiated down to her legs. Pain reported as 8 out of 10 , dull in quality. She reported feeling weak and inability to walk. She denied bowel bladder incontinence. No fever or chills. Upon evaluation laboratory work-up revealed no leukocytosis, mild anemia, BUN [address] of the spine revealed grade 4 spondylolisthesis of L5 on S1 with complete subluxation and the L5 vertebral body resting entirely anterior to the S1 vertebral body. No definite neural impingement. In emergency department patient received analgesia , pain improved, but she was unable to walk. Patient subsequently admitted for further management. CONSULTANTS: psychiatrist Dr. daksha Singh pain Specialist Dr. Quach [facility] COURSE: Patient admitted to medical surgical floor. Pain management was addressed as per pain specialist recommendation. Patient started on IV hydration with close monitoring of volumes and renal parameters. Electrolytes corrected as needed. With IV hydration, creatinine down to 1.1 , BUN down to 23. Psychiatrist followed . Current psychiatric medication regimen was continued. Patient was provided with reality orientation and supportive therapy. Fall precaution maintained. Patient was working with a physical therapist. Neurosurgery evaluation was requested , however, patient stated that she does not want any surgery. Patient only wanted to see her own neurosurgeon that she follows as outpatient. Patient was stable for discharge back to assisted living. Outpatient follow-up with her own back surgeon (oes not have privileges at this facility). FINAL DIAGNOSES: Intractable back pain Dehydration Unsteady gait Lumbar DDD Lumbar spondylosis Lumbar radiculopathy History of lumbar fusion Lumbar sprain Major depressive disorder Psychotic disorder DISCHARGE MEDICATIONS: See Medication Reconciliation list. DISCHARGE INSTRUCTIONS: Patient was discharged to assisted living with home health services to follow for physical therapy. Follow-up with the outpatient neurosurgeon I have been assigned to dictate discharge summary for this account. I was not involved in the patient's management. Mouna Cooper NP Aug 17, 2019 10:36
== END 2019-08-13 22:00 | disposition home or self-care (01) | DRG 552 ==
LOC: EMR 15:09 → 4E 15:20 → EDBEDREQ 18:12 → 4E 08-13 11:04
DX: M51.16 Intervertebral disc disorders with radiculopathy, lumbar region (principal); N28.9 Disorder of kidney and ureter, unspecified; E86.0 Dehydration; F32.9 Major depressive disorder, single episode, unspecified; R26.81 Unsteadiness on feet; F29 Unspecified psychosis not due to a substance or known physiological condition; Z98.1 Arthrodesis status; M47.896 Other spondylosis, lumbar region; S33.5XXA Sprain of ligaments of lumbar spine, initial encounter
CPT/HCPCS: 36415; 72131; 80053; 84443; 85025; 96361; 96374; 99285; J2405; J7030